=== PATIENT | male | born 1950 | race Caucasian/White ===

== ENCOUNTER 2019-04-21 16:30 | Outpatient (RCR) | payer MEDICARE, SELFPAY ==
[2019-02-17 12:29] VITALS: PULSE 58
--- NOTE | 2019-03-24 14:56 | PCCPR ---
Absent today, Adair called and said that he was back in afib and not feeling well today, hopes to return tomorrow.
--- NOTE | 2019-04-22 17:05 | PCCPR ---
Placing rehab on hold Reviewed ITP 60 day with [facility] last evening on past and upcoming goals. He is frustrated he has not been able to get to the point he can run in or out of doors. He still vacillates with paroxysmal AFib it is unpredictable even with the increase of his sotolol and increased metoprolol. Explained to [facility] I would try and reach Alina Schaefer today and discuss how to proceed. nurse did speak with her today and agreed if he was good with placing him on hold off on rehab to do so. The current plans after he see's the EP Beam Dyer and if an intervention discussed or implemented. She then will plan to have him resume rehab. Adair stopped by today to discuss this further and agreed this is a good option to put rehab on hold for now. Encouraged him to update us if there are any changes also continue to exercise at same level of intensity he has been doing in the program.
--- NOTE | 2019-06-02 15:02 | PCCPR ---
Update on Adair's ROCAEL He is now aware we are closed and our services currently suspended with the covid 19 virus. He did see the EP Mechanical Service Technician who was going to schedule and ablation. He said he waited the couple of days the MD recommended to and called in to schedule his elective procedure to find he was unable to schedule at this time due the covid 19 crisis. Asked him to keep us informed of his progress. States he is still having periods of afib off and on however walking outside when he can and at gym.
== END 2019-04-21 23:59 | disposition home or self-care (01) ==
LOC: ANHCPREHAB 16:30
PROVIDERS: Visit Provider Nurse Practitioner Adult Health
DX: Z95.5 Presence of coronary angioplasty implant and graft (principal)
CPT/HCPCS: 93798

== ENCOUNTER 2020-02-21 09:00 | Outpatient (RCR) | payer MEDICARE, SELFPAY ==
[2019-11-30 08:53] VITALS: PULSE 57
== END 2020-02-21 11:01 | disposition home or self-care (01) ==
LOC: ANHCPREHAB 09:00
PROVIDERS: PCP Internal Medicine Geriatric Medicine; Visit Provider Internal Medicine Cardiovascular Disease
DX: Z95.5 Presence of coronary angioplasty implant and graft (principal); I20.8 Other forms of angina pectoris
CPT/HCPCS: 93798

== ENCOUNTER 2020-05-12 11:02 | Outpatient (CLI) | payer MEDICARE, SELFPAY ==
[2020-05-12 11:22] LABS: Hematocrit 43.5 % (42.0-52.0); Hemoglobin 14.8 g/dL (14.0-18.0); Mean Corpuscular Hemoglobin 30.1 pg (26-34); Mean Corpuscular Volume 88.6 fl (80-100); Mean Platelet Volume 9.8 fl (7.4-10.4); Platelet Count Result 174 k/mm3 (150-375); Red Blood Count 4.91 M/mm3 (4.6-6.20); Red Cell Distribution Width 13.2 % (11.5-14.5)
[2020-05-12 11:34] LABS: Anion Gap 6 mmol/L (8-16); Blood Urea Nitrogen 18 mg/dL (9-20); Carbon Dioxide 29 mmol/L (22-30); Chloride 106 mmol/L (98-107); Estimated Glomerular Filt Rate > 60; Glucose 93 mg/dL (75-110); Potassium 4.5 mmol/L (3.4-5.0); Sodium 141 mmol/L (137-145)
== END 2020-05-12 11:03 | disposition home or self-care (01) ==
PROVIDERS: PCP Internal Medicine Geriatric Medicine; Visit Provider Internal Medicine Interventional Cardiology
DX: I25.10 Atherosclerotic heart disease of native coronary artery without angina pectoris (principal)
CPT/HCPCS: 36415; 80048; 85027

== ENCOUNTER 2022-06-24 14:19 | Outpatient (CLI) | payer MEDICARE, SELFPAY ==
[2022-06-24 16:24] LABS: NT Pro B Type Natriuretic Pept 62 pg/mL (19.9-100)
== END 2022-06-24 14:20 | disposition home or self-care (01) ==
PROVIDERS: PCP Internal Medicine Geriatric Medicine; Visit Provider Internal Medicine Cardiovascular Disease
DX: I25.10 Atherosclerotic heart disease of native coronary artery without angina pectoris (principal); R06.09 Other forms of dyspnea
CPT/HCPCS: 36415; 83880

== ENCOUNTER 2022-09-25 13:38 | Outpatient (CLI) | payer MEDICARE, SELFPAY ==
--- NOTE | 2022-09-25 15:51 | WPDPFTINT ---
PFT Procedure Performed PFT Procedure Performed Plethysmography (Lung Vol) Diffusing Cap (DLCO) Flow Vol Loop Spirometry w/o Bronchodil PFT Interpretation This is a pulmonary function test with spirometry, plethysmography and diffusing capacity. The test was performed and results interpreted in accordance with the 2019 and 2005 ATS/ERS Task Force guidelines respectively using the Global Lung Function Initiative-2012 reference equations. Patient demonstrated good effort and cooperation. Reproducibility criteria were met. The quality of the spirometry maneuver was Grade A. Findings: Spirometry: The contour the inspiratory and expiratory flow tracing are normal. The FVC is 4.04 L, 100% predicted. The FEV1 is 3.00 L, 99% predicted. The FEV1: FVC ratio 74%. Plethysmography: The total lung capacity is 6.89 L, 101% predicted. The functional residual capacity is 2.93 L, 81% predicted. The residual volume is 2.61 L 107% predicted. Diffusing capacity: The diffusing capacity unadjusted for hemoglobin and carboxyhemoglobin is 18.1, 72% predicted. The diffusing capacity adjusted for alveolar volume is 3.09, 79% predicted. Impression: The spirometry is normal without evidence of an obstructive abnormality. The lung volumes are normal. The diffusing capacity is normal. There are no prior studies for comparison
== END 2022-09-25 13:39 | disposition home or self-care (01) ==
LOC: ANHPFT 13:38
DX: R06.02 Shortness of breath (principal)
CPT/HCPCS: 94375; 94726; 94729

== ENCOUNTER 2024-01-17 15:31 | Emergency (ER) | payer MEDICARE, SELFPAY ==
--- NOTE | ~2024-01-17 | XR_ITS ---
EXAM: XR knee RT min 4V DATE: 01/17/2024 16:34 HISTORY: right knee pain, NKI, HX SURGERY X 3 YEARS AGO . COMPARISON: None available. FINDINGS: Decreased mineralization. No fracture or dislocation. No lytic or blastic lesion. Uncompli cated appearing right total knee arthroplasty hardware. No erosion or periosteal change. Moderate vol ume joint fluid. Scattered vascular calcifications. IMPRESSION: No acute osseous finding in the right knee. Reviewed, dictated and finalized at location K. [facility]IPPER
--- NOTE | ~2024-01-17 | US_ITS ---
EXAMINATION: US venous doppler LE RT DATE: 01/17/2024 17:00 INDICATION: right calf pain . TECHNIQUE: Grayscale images without and with compression and Doppler images of the right lower extrem ity veins were obtained. COMPARISON: None FINDINGS: The right common femoral vein, profunda (deep) femoral vein, femoral vein, popliteal vein, peroneal v ein, posterior tibial veins, gastrocnemius vein, and greater saphenous vein are patent. IMPRESSION: Patent right lower extremity veins. No evidence of deep venous thrombosis. Reviewed, dictated and finalized at location K. [facility]
[2024-01-17 15:38] VITALS: BP 158/99; PULSE 59; RESP 16; TEMP 36.2; O2SAT 98
--- NOTE | 2024-01-17 16:09 | PC.NURSE ---
Pt requesting pain medicine prior to xray.
--- NOTE | 2024-01-17 16:14 | ED.LOWEXIN ---
HPI - Extremity Injury (Lower) General Chief Complaint: Extremity Injury, Lower Stated Complaint: right knee pain Time Seen by Provider: 01/17/24 15:38 Source: patient Mode of arrival: ambulatory Limitations: no limitations History of Present Illness HPI Narrative: This is a 74 year old male that presents to the ER for right knee pain. Ongoing since this morning. Reports history of knee replacement 3 years ago. No known injury or trauma. Pain is worse with weight bearing and relieved with rest. Reports he is now also experiencing pain in his calf. Denies decreased ROM or numbness. Related Data Home Medications Medication Instructions Recorded Confirmed aspirin 81 mg tablet,delayed 81 mg PO DAILY 02/17/19 11/30/19 release (Radha Low Dose Aspirin) clopidogrel 75 mg tablet 75 mg PO DAILY 02/17/19 11/30/19 lorazepam 1 mg tablet 1 mg PO HS 02/17/19 11/30/19 nitroglycerin 0.4 mg sublingual 0.4 mg sublingual Q5-15M PRN Chest 02/17/19 11/30/19 tablet (Nitrostat) Pain amlodipine 5 mg-benazepril 10 mg 1 cap PO DAILY 11/30/19 11/30/19 capsule ergocalciferol (vitamin D2) 1,250 1,250 mcg PO WEEKLY 11/30/19 11/30/19 mcg (50,000 unit) capsule (Vitamin D2) fluticasone propionate 50 2 spray intranasal DAILY PRN 11/30/19 11/30/19 mcg/actuation nasal Allergy Symptoms spray,suspension metoprolol succinate 25 mg 25 mg PO DAILY 11/30/19 11/30/19 tablet,extended release 24 hr pantoprazole 40 mg tablet,delayed 40 mg PO QAM 11/30/19 11/30/19 release rivaroxaban 20 mg tablet (Xarelto) 20 mg PO DAILY 11/30/19 11/30/19 rosuvastatin 40 mg tablet 40 mg PO DAILY 11/30/19 11/30/19 sertraline 100 mg tablet (Zoloft) 150 mg PO DAILY 11/30/19 11/30/19 sotalol 160 mg tablet 160 mg PO BID 01/19/20 01/19/20 Allergies Allergy/AdvReac Type Severity Reaction Status Date / Time Penicillins Allergy Intermediate Rash Verified 01/17/24 16:11 Cardiac Cath contrast Allergy Redness of Uncoded 01/17/24 16:11 Skin Review of Systems Review of Systems: CONSTITUTIONAL: Denies fever SKIN: Denies rash MUSCULOSKELETAL: Reports joint pain, myalgia. NEUROLOGIC: Denies numbness All systems reviewed & are unremarkable except as noted in HPI and below PMFSH Past Medical History Medical History (Updated 01/17/24 @ 17:52 by Adelina Dumas PA-C) History of atrial fibrillation History of CAD (coronary artery disease) History of hyperlipidemia History of hypertension Family History Family History (Updated 11/30/19 @ 08:23 by Deidre Pablo RN) Mother Stomach cancer Sibling Acute myocardial infarction Hypertension COPD (chronic obstructive pulmonary disease) Sibling CAD (coronary artery disease) Hypertension Grandparent Cerebrovascular accident Son COPD (chronic obstructive pulmonary disease) Social History Social History Smoking status: Never smoker Gender identity (if verbalized by the patient): Male Exam Narrative: GENERAL: Well-appearing, well-nourished, and in no acute distress. HEAD: Normocephalic, atraumatic. EYES: EOMI. CHEST: No respiratory distress. HEART: Regular rate EXTREMITIES: Normal range of motion. Mild edema anterior to the right knee with a small contusion present. Normal DP and PT pulse. Normal sensation. Calf is tender to palpation. No erythema or warmth of the joint SKIN: Warm, dry, no rash. NEURO: No focal deficits. Alert and oriented x3. PSYCH: Normal mood and affect Course Course Emergency Course: Patient and family updated on workup and agree with plan of care Vital Signs Vital signs: Vital Signs Temperature 97.1 F L 01/17/24 15:38 Pulse Rate 59 L 01/17/24 15:38 Respiratory Rate 16 01/17/24 15:38 Blood Pressure 158/99 H 01/17/24 15:38 Pulse Oximetry 98 01/17/24 15:38 Temperature 97.1 F L 01/17/24 15:38 Pulse Rate 59 L 01/17/24 15:38 Respiratory Rate 16 01/17/24 15:38 Blood Pressure 158/99 H 01/17/24 15:38 Pulse Oximetry 98 01/17/24 15:38 MDM - Extremity Injury (Lower) MDM Narrative Medical decision making narrative: patient presents to the emergency department for right knee pain ongoing since this morning. No recent injuries or trauma. Has had a total knee replacement 3 years ago. He is afebrile and nontoxic appearing. There is no erythema or warmth of the knee. He has mild swelling anteriorly. Normal range of motion. Normal peripheral pulses. Right knee x-ray without acute osseous abnormalities. Right lower extremity venous Doppler without evidence of DVT. Patient placed in Darío wrap. Instructed to have close follow-up with his orthopedic surgeon for further care. He was given warnings to return to the ER Differential Diagnosis Differential diagnosis: Likely acute internal derangement of knee and other ( osteoarthritis, rheumatoid arthritis, hardware loosening, infection, DVT) Imaging Data Radiologist's impression: ITS Impressions Knee X-Ray 01/17/24 16:37 IMPRESSION: No acute osseous finding in the right knee. Venous Doppler Study 01/17/24 17:26 IMPRESSION: Patent right lower extremity veins. No evidence of deep venous thrombosis. Critical Care Time Critical Care Time Critical Care Time: No Discharge Plan Discharge Clinical Impression: Effusion of right knee joint Patient Disposition: Home, Self-Care Condition: Stable Instructions: Swollen Knee Joint (ED) Additional Instructions: Return to the ER if you experience fever, redness and swelling of your extremity, numbness or any other symptoms that are concerning to you Wear DARÍO wrap. Ice and elevate extremity. Pain medication as needed and directed. Follow up with your orthopedics doctor for further care. Prescriptions: New hydrocodone-acetaminophen 5-325 mg tablet 1 tablet PO Q8H PRN (Reason: pain) Qty: 10 0RF No Action clopidogrel 75 mg Tablet 75 mg PO DAILY Patient Comments: STOP MAY 05, 2020 Rx Instructions: Stop 07/31/19 aspirin [Radha Low Dose Aspirin] 81 mg Tablet,Delayed Release (Dr/Ec) 81 mg PO DAILY Patient Comments: STOP DEC 08, 2019 AND START MAY 05, 2020 Rx Instructions: Take until 03/01/19 then restart on 07/31/19 nitroglycerin [Nitrostat] 0.4 mg Tablet, Sublingual 0.4 mg SUBLINGUAL Q5-15M PRN (Reason: Chest Pain) lorazepam 1 mg Tablet 1 mg PO HS sertraline [Zoloft] 100 mg Tablet 150 mg PO DAILY amlodipine-benazepril 5-10 mg Capsule 1 cap PO DAILY pantoprazole 40 mg Tablet,Delayed Release (Dr/Ec) 40 mg PO QAM metoprolol succinate 25 mg Tablet Extended Release 24 Hr 25 mg PO DAILY ergocalciferol (vitamin D2) [Vitamin D2] 1,250 mcg (50,000 unit) Capsule 1,250 mcg PO WEEKLY fluticasone propionate 50 mcg/actuation [place],Suspension 2 spray INTRANASAL DAILY PRN (Reason: Allergy Symptoms) rosuvastatin 40 mg Tablet 40 mg PO DAILY Xarelto 20 mg Tablet 20 mg PO DAILY sotalol 160 mg Tablet 160 mg PO BID Follow-up/Referrals: PHYSICIAN NOT ON STAFF,NONSTAFF [Primary Care Provider] -
[2024-01-17] MEDS: ACETAMINOPHEN 500 MG TABLET 1000 MG PO (16:17)
[2024-01-17] MEDS: oxyCODONE HCL (*CRX) 5 MG TAB IR PO (16:17)
[2024-01-17] MEDS: KETOROLAC 30 MG/ML VIAL (*BKC) IM (16:17)
[2024-01-17] MEDS: oxyCODONE HCL (*CRX) 2.5 MG TAB IR PO (17:57)
== END 2024-01-17 18:11 | disposition home or self-care (01) ==
PROVIDERS: Emergency Provider Physician Assistant
DX: M25.461 Effusion, right knee (principal); M79.661 Pain in right lower leg; I48.91 Unspecified atrial fibrillation; I25.10 Atherosclerotic heart disease of native coronary artery without angina pectoris; I10 Essential (primary) hypertension; E78.5 Hyperlipidemia, unspecified; Z96.651 Presence of right artificial knee joint; Z79.899 Other long term (current) drug therapy; Z79.02 Long term (current) use of antithrombotics/antiplatelets; Z79.82 Long term (current) use of aspirin
CPT/HCPCS: 73564; 93971; 96372; 99284; A9270; J1885